=== PATIENT | female | born 1995 | race Caucasian/White ===

== ENCOUNTER 2017-06-19 11:11 | Emergency (ER) | payer SELFPAY ==
[2017-06-19 12:15] VITALS: BP 118/86
--- NOTE | 2017-06-19 12:18 | Emergency Department Report ---
Chief Complaint: Nausea/Vomiting/Diarrhea Stated Complaint: N/V Time Seen by Provider: 06/19/17 12:15 - HPI History of Present Illness: PT states she has not had a period since March. PT states she had a negative test several weeks ago. PT reports abd pain and n/v since this morning - ROS Review of Systems: + n/v + abd pain - Exam Vital Signs: Vital Signs 06/19/17 12:10 Temperature 98.7 F Pulse Rate 51 L Respiratory 18 Rate Blood Pressure 118/86 O2 Sat by Pulse 97 Oximetry Physical Exam: thin female. no acute distress pt c/o upper abd pain, however, not ttp MSE screening note: Focused history and physical exam performed. Due to findings the following was ordered: labs ED Disposition for MSE Condition: Stable
[2017-06-19 12:39] LABS: Hematocrit 42.2 % (30.3-42.9); Hemoglobin 13.6 gm/dl (10.1-14.3); Mean Corpuscular HGB Conc 32 % (30-34); Mean Corpuscular Volume 75 fl (79-97); Platelet Count 280 K/mm3 (140-440); Red Blood Count 5.65 M/mm3 (3.65-5.03); Red Cell Distribution Width 15.7 % (13.2-15.2); White Blood Count 14.4 K/mm3 (4.5-11.0)
[2017-06-19 12:40] LABS: Mean Corpuscular Hemoglobin 24 pg (28-32)
[2017-06-19 12:54] LABS: Bacteria,Urine 3+ /HPF (Negative); Bilirubin,Urine NEG (Negative); Blood,Urine SM (Negative); Ketones,Urine 20 mg/dL (Negative); Leukocyte Esterase,Urine MOD (Negative); Mucus,Urine 1+ /HPF; Nitrite,Urine POS (Negative); Urobilinogen,Urine < 2.0 mg/dL (<2.0)
[2017-06-19 12:55] LABS: Alanine Aminotransferase 11 units/L (7-56); Albumin 4.7 g/dL (3.9-5); Albumin/Globulin Ratio 1.2 %; Alkaline Phosphatase 95 units/L (35-129); Anion Gap 21 mmol/L; Blood Urea Nitrogen 6 mg/dL (7-17); Calcium 9.7 mg/dL (8.4-10.2); Carbon Dioxide 23 mmol/L (22-30); Chloride 99.7 mmol/L (98-107); Glucose 103 mg/dL (65-100); Potassium 3.6 mmol/L (3.6-5.0); Sodium 140 mmol/L (137-145); Total Protein 8.6 g/dL (6.3-8.2)
[2017-06-19] MEDS ORDERED: ZOFRAN IM ONE (13:03)
[2017-06-19] MEDS ORDERED: ZOFRAN ONE (13:06)
[2017-06-19] MEDS ORDERED: NACL 0.9% 1000 ML 1,000 ML IV ONE (13:08)
[2017-06-19 13:43] LABS: Basophils % (Manual) 0 % (0.0-1.8); Blastocytes % (Manual) 0 %; Eosinophils % (Manual) 0 % (0.0-4.3)
[2017-06-19 13:44] LABS: Diff Status Complete; Hypochromasia 1+
--- NOTE | 2017-06-19 16:30 | Emergency Department Report ---
ED N/V/D HPI - General Chief complaint: Nausea/Vomiting/Diarrhea Stated complaint: N/V Time Seen by Provider: 06/19/17 12:15 Source: patient Mode of arrival: Ambulatory Limitations: No Limitations - Related Data Previous Rx's Medication Instructions Recorded Last Taken Type Sulfamethoxazole/Trimethoprim 1 each PO BID #9 tablet 06/19/17 Unknown Rx [Bactrim DS TAB] Allergies Allergy/AdvReac Type Severity Reaction Status Date / Time ampicillin Allergy Rash Verified 06/19/17 12:09 Penicillins Allergy Rash Verified 06/19/17 12:09 ED Review of Systems ROS: Stated complaint: N/V Other details as noted in HPI ED Past Medical Hx - Past Medical History Previous Medical History?: Yes Additional medical history: stomach ulcers - Surgical History Past Surgical History?: No - Social History Smoking Status: Never Smoker Substance Use Type: Non Opiate Pain - Medications Home Medications: Home Medications Medication Instructions Recorded Confirmed Last Taken Type Sulfamethoxazole/Trimethoprim 1 each PO BID #9 tablet 06/19/17 Unknown Rx [Bactrim DS TAB] ED Physical Exam - General Limitations: No Limitations ED Course Vital Signs 06/19/17 12:10 Temperature 98.7 F Pulse Rate 51 L Respiratory 18 Rate Blood Pressure 118/86 O2 Sat by Pulse 97 Oximetry ED Medical Decision Making - Lab Data Result diagrams: 06/19/17 12:23 06/19/17 12:23 Critical care attestation.: If time is entered above; I have spent that time in minutes in the direct care of this critically ill patient, excluding procedure time. ED Disposition Disposition: DC-07 LEFT AGAINST MED ADVICE Condition: Stable Instructions: Urinary Tract Infection in Women (ED) Prescriptions: Sulfamethoxazole/Trimethoprim [Bactrim DS TAB] 1 each PO BID #9 tablet Referrals: PRIMARY CARE, [Primary Care Provider] - 3-5 Days Forms: AMA Form
== END 2017-06-19 15:14 | disposition left against medical advice (07) ==
LOC: ED 11:11
DX: R11.2 Nausea with vomiting, unspecified (principal); R19.7 Diarrhea, unspecified; Z88.0 Allergy status to penicillin
CPT/HCPCS: 36415; 80053; 81001; 83690; 84703; 85007; 85025; 96360; 96372; 99283; J2405; J7030

== ENCOUNTER 2019-02-20 10:16 | Emergency (ER) | payer SELFPAY ==
[2019-02-20] MEDS ORDERED: NACL 0.9% 1000 ML 1,000 ML IV ONE (11:02)
[2019-02-20] MEDS ORDERED: PEPCID IV ONE (11:02)
[2019-02-20] MEDS ORDERED: MORPHINE IV ONE (11:02)
[2019-02-20] MEDS ORDERED: ZOFRAN IV ONE (11:02)
--- NOTE | 2019-02-20 11:04 | Emergency Department Report ---
ED General Adult HPI - General Chief complaint: Nausea/Vomiting/Diarrhea Stated complaint: ABD PAIN Time Seen by Provider: 02/20/19 10:56 Source: patient, RN notes reviewed Mode of arrival: Ambulatory Limitations: No Limitations - History of Present Illness Initial comments: This is a 23-year-old female. The patient reports that she is not . T he patient reports no chronic medical conditions. The patient does admit to sporadic marijuana consumption. The patient presents to the emergency room today with a complaint of lower abdominal pain, cramping, nausea, vomiting, weakness. Symptoms intermittent, present for the past day or so, and they do not radiate anywhere, the increased with palpation, they decrease with morphine, and intravenous antibiotic medication. Apparently, the patient has had similar symptoms like this in the past. She denies headache, neck pain, dysuria, focal extremity weakness, numbness. -: Gradual Location: abdomen Radiation: non-radiation Quality: aching Consistency: other Improves with: other Worsens with: other - Related Data Previous Rx's Medication Instructions Recorded Last Taken Type Sulfamethoxazole/Trimethoprim 1 each PO BID #9 tablet 06/19/17 Unknown Rx [Bactrim DS TAB] Dicyclomine [Bentyl] 10 mg PO QID PRN #15 capsule 02/20/19 Unknown Rx Famotidine [Pepcid] 20 mg PO BID #10 tablet 02/20/19 Unknown Rx Metoclopramide [Reglan] 10 mg PO QID PRN #30 tablet 02/20/19 Unknown Rx Promethazine [Phenergan SUPPOS] 50 mg SC Q6H PRN #15 supp.rect 02/20/19 Unknown Rx Allergies Allergy/AdvReac Type Severity Reaction Status Date / Time ampicillin Allergy Rash Verified 06/19/17 12:09 Penicillins Allergy Rash Verified 06/19/17 12:09 ED Review of Systems ROS: Stated complaint: ABD PAIN Other details as noted in HPI Constitutional: malaise Eyes: denies: eye discharge ENT: denies: congestion Respiratory: denies: cough Cardiovascular: denies: chest pain Gastrointestinal: abdominal pain, nausea, vomiting, constipation Genitourinary: denies: dysuria Musculoskeletal: arthralgia Skin: denies: lesions Neurological: weakness ED Past Medical Hx - Past Medical History Previous Medical History?: Yes Additional medical history: stomach ulcers - Surgical History Past Surgical History?: No - Social History Smoking Status: Never Smoker Substance Use Type: None - Medications Home Medications: Home Medications Medication Instructions Recorded Confirmed Last Taken Type Sulfamethoxazole/Trimethoprim 1 each PO BID #9 tablet 06/19/17 Unknown Rx [Bactrim DS TAB] Dicyclomine [Bentyl] 10 mg PO QID PRN #15 capsule 02/20/19 Unknown Rx Famotidine [Pepcid] 20 mg PO BID #10 tablet 02/20/19 Unknown Rx Metoclopramide [Reglan] 10 mg PO QID PRN #30 tablet 02/20/19 Unknown Rx Promethazine [Phenergan SUPPOS] 50 mg SC Q6H PRN #15 supp.rect 02/20/19 Unknown Rx ED Physical Exam - General Limitations: No Limitations General appearance: alert, anxious, in distress, other (patient actively retching.) - Head Head exam: Present: atraumatic, normocephalic - Eye Eye exam: Present: normal appearance, EOMI - ENT ENT exam: Present: normal exam, normal orophraynx, normal external ear exam - Neck Neck exam: Present: normal inspection, full ROM. Absent: tenderness, meningismus - Respiratory Respiratory exam: Present: normal lung sounds bilaterally. Absent: respiratory distress - Cardiovascular Cardiovascular Exam: Present: regular rate, normal rhythm, normal heart sounds. Absent: bradycardia, tachycardia, irregular rhythm, systolic murmur, diastolic murmur, rubs, gallop - GI/Abdominal GI/Abdominal exam: Present: soft, tenderness, other (there is mild lower abdominal tenderness. There is no rebound, guarding or peritoneal signs.). Absent: distended, guarding, rebound, rigid, pulsatile mass - Extremities Exam Extremities exam: Present: normal inspection, full ROM, other (2+ pulses noted in the bilateral upper, lower extremities. Compartments soft. No long bony t enderness. The pelvis is stable.). Absent: pedal edema, joint swelling, calf tenderness - Back Exam Back exam: Present: normal inspection, full ROM. Absent: tenderness, CVA tenderness (R), paraspinal tenderness, vertebral tenderness - Neurological Exam Neurological exam: Present: alert, other (Extraocular movements intact. Tongue midline. No facial droop. Facial sensation intact to light touch in the V1, V2, V3 distribution bilaterally. 5 and 5 strength in 4 extremities.. Sensation is intact to light touch in 4 extremities.). Absent: motor sensory deficit - Psychiatric Psychiatric exam: Present: anxious - Skin Skin exam: Present: warm, dry, intact, normal color. Absent: rash ED Course Vital Signs 02/20/19 02/20/19 02/20/19 10:27 10:36 11:15 Temperature 98.7 F Pulse Rate 91 H Respiratory 18 20 Rate Blood Pressure 132/78 122/75 O2 Sat by Pulse 100 98 Oximetry 02/20/19 02/20/19 02/20/19 11:20 11:30 12:00 Temperature Pulse Rate 85 77 63 Respiratory 18 19 10 L Rate Blood Pressure 122/75 126/74 133/82 O2 Sat by Pulse 100 100 Oximetry ED Medical Decision Making - Lab Data Result diagrams: 02/20/19 11:10 02/20/19 11:10 Vital Signs 02/20/19 02/20/19 02/20/19 10:27 10:36 11:15 Temperature 98.7 F Pulse Rate 91 H Respiratory 18 20 Rate Blood Pressure 132/78 122/75 O2 Sat by Pulse 100 98 Oximetry 02/20/19 02/20/19 02/20/19 11:20 11:30 12:00 Temperature Pulse Rate 85 77 63 Respiratory 18 19 10 L Rate Blood Pressure 122/75 126/74 133/82 O2 Sat by Pulse 100 100 Oximetry Lab Results 02/20/19 02/20/19 02/20/19 Range/Units 11:10 11:10 11:10 WBC 14.0 H (4.5-11.0) K/mm3 RBC 5.55 H (3.65-5.03) M/mm3 Hgb 14.2 (10.1-14.3) gm/dl Hct 43.4 H (30.3-42.9) % MCV 78 L (79-97) fl MCH 26 L (28-32) pg MCHC 33 (30-34) % RDW 14.3 (13.2-15.2) % Plt Count 311 (140-440) K/mm3 PT (12.2-14.9) Sec. INR (0.87-1.13) Sodium 141 (137-145) mmol/L Potassium 3.6 (3.6-5.0) mmol/L Chloride 101.5 (98-107) mmol/L Carbon Dioxide 20 L (22-30) mmol/L Anion Gap 23 mmol/L BUN 10 (7-17) mg/dL Creatinine 0.7 (0.7-1.2) mg/dL Estimated GFR > 60 ml/min BUN/Creatinine Ratio 14 % Glucose 172 H (65-100) mg/dL Calcium 10.3 H (8.4-10.2) mg/dL Magnesium 1.90 (1.7-2.3) mg/dL Total Bilirubin 0.80 (0.1-1.2) mg/dL AST 24 (5-40) units/L ALT 12 (7-56) units/L Alkaline Phosphatase 83 (35-129) units/L Total Creatine Kinase 169 H (30-135) units/L Total Protein 8.0 (6.3-8.2) g/dL Albumin 4.9 (3.9-5) g/dL Albumin/Globulin Ratio 1.6 % Lipase 25 (13-60) units/L HCG, Quant < 2 (0-4) mIU/mL Urine Color (Yellow) Urine Turbidity (Clear) Urine pH (5.0-7.0) Ur Specific [place] (1.003-1.030) Urine Protein (Negative) mg/dL Urine Glucose (UA) (Negative) mg/dL Urine Ketones (Negative) mg/dL Urine Blood (Negative) Urine Nitrite (Negative) Urine Bilirubin (Negative) Urine Urobilinogen (<2.0) mg/dL Ur Leukocyte Esterase (Negative) Urine WBC (Auto) (0.0-6.0) /HPF Urine RBC (Auto) (0.0-6.0) /HPF U Epithel Cells (Auto) (0-13.0) /HPF Urine Mucus /HPF Urine Opiates Screen Urine Methadone Screen Ur Barbiturates Screen Ur Phencyclidine Scrn Ur Amphetamines Screen U Benzodiazepines Scrn Urine Cocaine Screen U Marijuana (THC) Screen Drugs of Abuse Note 02/20/19 02/20/19 02/20/19 Range/Units 11:10 12:58 12:58 WBC (4.5-11.0) K/mm3 RBC (3.65-5.03) M/mm3 Hgb (10.1-14.3) gm/dl Hct (30.3-42.9) % MCV (79-97) fl MCH (28-32) pg MCHC (30-34) % RDW (13.2-15.2) % Plt Count (140-440) K/mm3 PT 13.4 (12.2-14.9) Sec. INR 0.96 (0.87-1.13) Sodium (137-145) mmol/L Potassium (3.6-5.0) mmol/L Chloride (98-107) mmol/L Carbon Dioxide (22-30) mmol/L Anion Gap mmol/L BUN (7-17) mg/dL Creatinine (0.7-1.2) mg/dL Estimated GFR ml/min BUN/Creatinine Ratio % Glucose (65-100) mg/dL Calcium (8.4-10.2) mg/dL Magnesium (1.7-2.3) mg/dL Total Bilirubin (0.1-1.2) mg/dL AST (5-40) units/L ALT (7-56) units/L Alkaline Phosphatase (35-129) units/L Total Creatine Kinase (30-135) units/L Total Protein (6.3-8.2) g/dL Albumin (3.9-5) g/dL Albumin/Globulin Ratio % Lipase (13-60) units/L HCG, Quant (0-4) mIU/mL Urine Color Yellow (Yellow) Urine Turbidity Slightly-cloudy (Clear) Urine pH 7.0 (5.0-7.0) Ur Specific [place] 1.055 H (1.003-1.030) Urine Protein <15 mg/dl (Negative) mg/dL Urine Glucose (UA) 50 (Negative) mg/dL Urine Ketones 20 (Negative) mg/dL Urine Blood Neg (Negative) Urine Nitrite Neg (Negative) Urine Bilirubin Neg (Negative) Urine Urobilinogen < 2.0 (<2.0) mg/dL Ur Leukocyte Esterase Mod (Negative) Urine WBC (Auto) 4.0 (0.0-6.0) /HPF Urine RBC (Auto) 3.0 (0.0-6.0) /HPF U Epithel Cells (Auto) 12.0 (0-13.0) /HPF Urine Mucus Few /HPF Urine Opiates Screen Presumptive negative Urine Methadone Screen Presumptive negative Ur Barbiturates Screen Presumptive negative Ur Phencyclidine Scrn Presumptive negative Ur Amphetamines Screen Presumptive negative U Benzodiazepines Scrn Presumptive negative Urine Cocaine Screen Presumptive negative U Marijuana (THC) Screen Presumptive positive Drugs of Abuse Note Disclamer - EKG Data -: EKG Interpreted by Ne EKG shows normal: sinus rhythm Rate: normal - EKG Data When compared to previous EKG there are: previous EKG unavailable 02/20/19 15:17 Sinus rhythm, 77 bpm, normal axis, QTC prolonged, poor R-wave progression, T- wave inversion in V3, motion artifact, juvenile T-wave inversion, abnormal EKG, no prior for comparison, this is not consistent with ST elevation myocardial infarction. - Radiology Data Radiology results: report reviewed, image reviewed Print Report Referring Physician: GREGORY BRUNNER Patient Name: CHELY SOARES Date of : 1995 Sex: Female Report Date: 2019-02-20 Report Status: Finalized Findings [facility] [address] [place] [address] Cat Scan Report Signed Patient: CHELY SOARES MR#: [id number] : 1995 Acct:[id number] Age/Sex: 23 / F ADM Date: 02/20/19 Loc: ED Attending Dr: Ordering Physician: GREGORY BRUNNER MD Date of Service: 02/20/19 Procedure(s): CT abdomen pelvis w con Accession Number(s): [id number] cc: GREGORY BRUNNER MD CT ABDOMEN AND PELVIS WITH CONTRAST INDICATION: Abdominal pain, nausea, vomiting. COMPARISON: None similar at this institution. FINDINGS: Abdomen and pelvis CT performed following intravenous administration of 100 cc of Omnipaque 300. LUNG BASES: Top normal heart size. Slight nonspecific air filled distal esophageal prominence. ABDOMEN: Left hepatic lobe tip wraps around the spleen in the left upper quadrant. Right hepatic lobe 14.4 cm in midcla vicular length. An indeterminate 4 mm hypodensity in anterior segment of the right hepatic lobe, axial series 2, image 31. Otherwise unremarkable liver, spleen, gallbladder, pancreas, adrenals, aorta, IVC and kidneys. No ascites or size significant adenopathy. Nonopacified GI tract evaluation limited, though grossly nonobstructive. Normal retrocecal appendix. PELVIS: Retroverted uterus. Likely physiologic, small deep right hemipelvic complex fluid/possibly hemorrhagic as on axial image 148, series 2. Urinary bladder and rectosigmoid within normal limits. No free fluid or significant adenopathy. Sacralization of left L5 transverse process incidentally seen. CONCLUSION: No acute significant CT abnormality with few incidental findings, as above. Thank you for the opportunity to participate in this patient's care. Transcribed By: RS Dictated By: BRANDON BETTS MD Electronically Authenticated By: BRANDON BETTS MD Signed Date/Time: 02/20/19 1366 - Medical Decision Making Differential diagnosis, including but not limited to: GERD, gastritis, hiatal hernia, cyclic vomiting syndrome, irritable bowel syndrome, N cannabinoid hyperemesis syndrome, inflammatory bowel disease Assessment and plan: 23-year-old female with nausea, vomiting, currently relieved by antiemetic medication. The patient is afebrile with reassuring vital signs. The patient is clinically sober upon arrival. Urinalysis confirms presence of cannabis metabolites. Most likely diagnosis cannabinoids hyperemesis syndrome. Leukocytosis is reviewed and appreciated, likely stress reaction secondary to nausea, vomiting and physical discomfort. This patient has been reevaluated by myself multiple times while in the emergency room. I walk by her room, and she is sleeping comfortably, with no active vomiting. The patient at this point in time is suitable for a trial of outpatient oral therapy. She is counseled to discontinue cannabis consumption, she will be d ischarged with nonnarcotic pain medication, and she'll be instructed to follow up with outpatient gastroenterology. Critical care attestation.: If time is entered above; I have spent that time in minutes in the direct care of this critically ill patient, excluding procedure time. ED Disposition Clinical Impression: Abdominal pain, Vomiting Disposition: DC-01 TO HOME OR SELFCARE Is pt being admited?: No Does the pt Need Aspirin: No Condition: Stable Instructions: Gastroenteritis (ED), Acute Nausea and Vomiting (ED) Additional Instructions: Discontinue cannabis, marijuana consumption. This is the most likely etiology of patient's symptoms. The patient most likely has cannabinoid hyperemesis syndrome. Take the pain medication, nausea medication as needed/directed. Avoid consumption of alcohol, Motrin, Naprosyn, Aleve, heavy, spicy foods. Follow up with a primary care doctor or gastroenterology doctor within the next 7-10 days. Return to the emergency room right away with new, worse or different symptoms. Referrals: [facility] [Provider Group] - 3-[address] [facility] [Provider Group] - 3-5 Days
[2019-02-20 11:23] LABS: Hematocrit 43.4 % (30.3-42.9); Hemoglobin 14.2 gm/dl (10.1-14.3); Mean Corpuscular HGB Conc 33 % (30-34); Mean Corpuscular Volume 78 fl (79-97); Platelet Count 311 K/mm3 (140-440); Red Blood Count 5.55 M/mm3 (3.65-5.03); Red Cell Distribution Width 14.3 % (13.2-15.2)
[2019-02-20 11:34] LABS: INR 0.96 (0.87-1.13)
[2019-02-20 11:39] LABS: Alanine Aminotransferase 12 units/L (7-56); Albumin 4.9 g/dL (3.9-5); BUN/Creatinine Ratio 14; Blood Urea Nitrogen 10 mg/dL (7-17); Calcium 10.3 mg/dL (8.4-10.2); Hemolysis Index 8
--- NOTE | 2019-02-20 13:07 | Cat Scan Report ---
CT ABDOMEN AND PELVIS WITH CONTRAST INDICATION: Abdominal pain, nausea, vomiting. COMPARISON: None similar at this institution. FINDINGS: Abdomen and pelvis CT performed following intravenous administration of 100 cc of Omnipaque 300. LUNG BASES: Top normal heart size. Slight nonspecific air filled distal esophageal prominence. ABDOMEN: Left hepatic lobe tip wraps around the spleen in the left upper quadrant. Right hepatic lobe 14.4 cm in midclavicular length. An indeterminate 4 mm hypodensity in anterior segment of the right hepatic lobe, axial series 2, image 31. Otherwise unremarkable liver, spleen, gallbladder, pancreas, adrenals, aorta, IVC and kidneys. No ascites or size significant adenopathy. Nonopacified GI tract evaluation limited, though grossly nonobstructive. Normal retrocecal appendix. PELVIS: Retroverted uterus. Likely physiologic, small deep right hemipelvic complex fluid/possibly hemorrhagic as on axial image 148, series 2. Urinary bladder and rectosigmoid within normal limits. No free fluid or significant adenopathy. Sacralization of left L5 transverse process incidentally seen. CONCLUSION: No acute significant CT abnormality with few incidental findings, as above. Thank you for the opportunity to participate in this patient's care.
[2019-02-20 13:24] LABS: Bilirubin,Urine NEG (Negative); Blood,Urine NEG (Negative); Color,Urine Yellow (Yellow); Mucus,Urine FEW /HPF; Protein,Urine <15 mg/dL mg/dL (Negative); Urobilinogen,Urine < 2.0 mg/dL (<2.0)
[2019-02-20 13:28] LABS: Amphetamine Screen,Urine PRESUMPTIVE NEGATIVE; Benzodiazepines Screen,Urine PRESUMPTIVE NEGATIVE; Cocaine Screen,Urine PRESUMPTIVE NEGATIVE; Methadone Screen,Urine PRESUMPTIVE NEGATIVE; Opiate Screen,Urine PRESUMPTIVE NEGATIVE
[2019-02-20 13:40] LABS: Cannabinoid Screen,Urine PRESUMPTIVE POSITIVE
[2019-02-20] MEDS ORDERED: REGLAN IV ONE (14:28)
[2019-02-20 15:26] VITALS: BP 100/61
== END 2019-02-20 15:56 | disposition home or self-care (01) ==
LOC: ED 10:16
DX: R10.30 Lower abdominal pain, unspecified (principal); R11.2 Nausea with vomiting, unspecified
CPT/HCPCS: 36415; 74177; 80053; 80307; 81001; 82550; 83690; 83735; 84702; 85027; 85610; 93005; 93010; 96361; 96374; 96375; 99284; J2270; J2405; J2765; J7030; Q9967